=== PATIENT | male | born 1960 | race African-American/Black ===

== ENCOUNTER 2020-05-09 20:09 | Emergency (ER) | payer OTHER ==
[~2020-05-09] VITALS: Ht 195.6 cm; Wt 104.0 kg
[2020-05-09 20:10] VITALS: BP 136/75
[2020-05-09] MEDS ORDERED: ACETAMINOPHEN 500MG TABLET PO ONE (21:30)
== END 2020-05-10 03:27 | disposition left against medical advice (07) ==
LOC: ER 20:09
DX: R51.9 Headache, unspecified (principal)
CPT/HCPCS: 93005; 99284